=== PATIENT | female | born 1970 | race Caucasian/White ===

== ENCOUNTER 2020-02-14 09:58 | Inpatient (IN) | payer OTHER ==
[~2020-02-14] VITALS: Ht 157.5 cm; Wt 44.0 kg
[~2020-02-14 09:58] MED LIST: ACETAMINOPHEN-1 EAC1 PO; MULTIVITAMINS; PROZAC20 MG PO
[2020-02-14 10:12] VITALS: BP 134/79
[2020-02-14 10:21] LABS: URINE BILIRUBIN NEGATIVE (Negative); URINE BLOOD TRACE (Negative); URINE CLARITY CLEAR; URINE COLOR YELLOW; URINE GLUCOSE-RANDOM NEGATIVE (Negative); URINE KETONES NEGATIVE (Negative); URINE LEUKOCYTES-REFLEX NEGATIVE (Negative); URINE NITRITE-REFLEX NEGATIVE (Negative); URINE PROTEIN NEGATIVE (Negative); URINE SPECIFIC GRAVITY <= 1.005 (1.005-1.030); URINE UROBILINOGEN 0.2 E.U./dl (0.2-1.0)
[2020-02-14 10:41] LABS: ABSOLUTE BASOPHILS 0.1 thou/uL (0.0-0.2); ABSOLUTE LYMPHOCYTES 2.3 thou/uL (0.8-5.3); ABSOLUTE MONOCYTES 1.3 thou/uL (0.0-1.2); ABSOLUTE NEUTROPHILS 11.8 thou/uL (1.6-8.1); BASOPHILS 0.4 %; EOSINOPHILS 0.2 %; HEMATOCRIT 35.2 % (37.0-47.0); HEMOGLOBIN 12.3 gm/dL (12.0-15.0); LYMPHOCYTES 15.1 %; MCH 35.2 pg (26.0-34.0); MCV 100.4 fL (80.0-100.0); MONOCYTES 8.2 %; MPV 7.6 fl. (7.2-11.1); NUCLEATED RBCS 0 /100WBC; PLATELET COUNT* 333 thou/uL (150-400); POLYS 76.1 %; RBC 3.51 mil/uL (4.20-5.00); RDW-CV 12.2 % (10.5-14.5); WBC 15.5 thou/uL (4.0-11.0)
[2020-02-14 10:45] LABS: CALCIUM 9.1 mg/dL (8.5-10.1); CREATININE 0.7 mg/dL (0.6-1.3)
[2020-02-14 10:50] LABS: ALBUMIN 3.4 g/dL (3.4-5.0); TOTAL BILIRUBIN 0.3 mg/dL (<0.1-1.0); TOTAL PROTEIN 7.6 g/dL (6.4-8.2)
[2020-02-14 15:36] VITALS: BP 112/73
[2020-02-14 15:57] VITALS: BP 113/74
[2020-02-14] MEDS ORDERED: RITALIN20 MG PO (18:55)
[2020-02-15 05:12] LABS: ABSOLUTE MONOCYTES 0.4 thou/uL (0.0-1.2); ABSOLUTE NEUTROPHILS 8.3 thou/uL (1.6-8.1); BASOPHILS 0.2 %; HEMATOCRIT 33.9 % (37.0-47.0); HEMOGLOBIN 11.7 gm/dL (12.0-15.0); LYMPHOCYTES 10.8 %; MCH 34.9 pg (26.0-34.0); MCHC 34.5 g/dL (28.0-37.0); MCV 101.2 fL (80.0-100.0); MPV 8.2 fl. (7.2-11.1); NUCLEATED RBCS 0 /100WBC; PLATELET COUNT* 343 thou/uL (150-400); RBC 3.35 mil/uL (4.20-5.00); RDW-CV 12.3 % (10.5-14.5); WBC 9.7 thou/uL (4.0-11.0)
[2020-02-15 05:44] LABS: ALBUMIN 2.8 g/dL (3.4-5.0); CALCIUM 8.5 mg/dL (8.5-10.1); CREATININE 0.9 mg/dL (0.6-1.3); MAGNESIUM 1.9 mg/dL (1.8-2.4); PHOSPHORUS* 3.3 mg/dL (2.5-4.9); TOTAL BILIRUBIN 0.3 mg/dL (<0.1-1.0); TOTAL PROTEIN 6.6 g/dL (6.4-8.2)
[2020-02-15 05:46] LABS: POTASSIUM 4.4 mmol/L (3.5-5.1)
[2020-02-15 07:45] VITALS: BP 93/59
[2020-02-15 14:05] VITALS: BP 93/59
[2020-02-15 14:21] VITALS: BP 93/59
--- NOTE | 2020-02-15 20:52 | OP ---
[address] [address] OPERATIVE REPORT Name: CARMEN SPEARS Room: [address]#: [id number] Admission: 02/14/20 Attend Phys: Helder Montano Discharge: 02/15/20 Date of : 74 Report #: [id number] THIS REPORT FOR: //name// cc: ELVER Perez family physician/PCP ELVER Perez family physician/PCP ~ CC: ELVER physician/PCP Anthony Owusu DICTATED BY: Yoshi Urbina DO DATE OF SERVICE: 02/14/2020 PREOPERATIVE DIAGNOSIS: Perforated appendicitis. POSTOPERATIVE DIAGNOSIS: Abdominal ascites. SURGEON: Anthony Owusu DO ASSISTANTS: Yoshi Urbina, PGY-5 and MS David4. OPERATION PERFORMED: Laparoscopic appendectomy and diagnostic laparoscopy. ANESTHESIA: General and local. ESTIMATED BLOOD LOSS: 5 mL. SPECIMEN: Appendix and fluid for culture. COMPLICATIONS: None. FINDINGS: Noninflamed appendix. Ascites and fluid in the pelvis. No purulence. No obvious site of inflammation or perforation of the anterior abdominal structures. INDICATIONS: The patient is a 49-year-old female that presented to the Emergency Department complaining of 5 days of increasing right lower quadrant pain and fever. The pain was located in the right lower quadrant and radiated to her back. She underwent CT scan, which showed inflammatory changes in the right lower quadrant, poor visualization of the appendix and a small bubble of extraluminal gas near the liver. She also had a leukocytosis of 15.5 with a left shift. Because of these findings, there was suspicion for perforated appendicitis. She was informed of the risks and benefits of operative versus nonoperative management. She was specifically informed of the risks of laparoscopic appendectomy with risks including but not limited to bleeding, [place] [address] OPERATIVE REPORT Name: CARMEN SPEARS Room: [address]#: [id number] Admission: 02/14/20 Attend Phys: Helder Montano Discharge: 02/15/20 Date of : 74 Report #: [id number] infection, bowel injury, bladder injury, and need for reoperation. She understood these risks and decided to proceed with surgery. DESCRIPTION OF PROCEDURE: After informed consent was obtained, the patient was brought to the operating room and placed in supine position. SCDs were on and running. Preoperative antibiotics were given in the OR. General anesthesia was administered with an ET tube. The patient was prepped and draped in the usual sterile fashion. A surgical pause was held to confirm proper patient and procedure. A curvilinear infraumbilical incision horizontal orientation was made using an 11 blade. Dissection was carried through the subcutaneous tissue using cautery. The S retractors were used to bluntly dissect the subcutaneous fat until the fascia was identified, which was scored with cautery and elevated with 2 Kochers. Peritoneum was bluntly entered using a Mahogany clamp. A finger was introduced into the abdomen and intraperitoneal location was confirmed. Stay sutures were placed on either side of the fascia with 0 Vicryl. A Mary trocar 12 mm in size was inserted into the abdomen. Abdomen was insufflated. The patient was positioned head down and left side down. Two additional 5 mm ports were placed, one in the suprapubic region and one in the left lower quadrant under direct visualization. Attention was turned towards the right lower quadrant. This right colon was identified and traced down to the cecum, which was in the pelvis. Laparoscopic Babcocks were used to grab the cecum and bring it into the right lower quadrant. The appendix was readily visualized and was not inflamed and normal appearing. There did not appear to be any inflammation or site of perforation. Due to the negative appendix, an exploration of the abdomen was undertaken. The small bowel was run from the terminal ileum at the cecum back. There was no inflammation to suggest Crohn's disease. There was no Meckel's diverticulum noted. The sigmoid colon was normal appearing. Both ovaries were identified. The patient was status post hysterectomy. The vaginal cuff appeared intact. The remaining tubes on bilateral pelvic lind appeared normal. There was some ascites in the pelvis, which was suctioned and sent for culture. The rectum, sigmoid and left colon appeared normal. The stomach appeared normal. The liver appeared normal. The gallbladder appeared normal. There was no visible sign of any inflammation or perforation with the visualized abdominal structures. Attention was returned towards the right lower quadrant. The appendix was elevated. A [place] dissector was used to create a window in the mesoappendix. A 45 mm Covidien purple load was fired across the base of the appendix. A LigaSure was used to take down the mesoappendix. The staple line was inspected and hemostatic and intact. There was no appendiceal stump. The mesoappendix was inspected and hemostatic. The abdomen was desufflated. Ports were removed under direct visualization. The appendix had been placed within an EndoCatch bag and placed aside until desufflation. The specimen was removed through the umbilical incision. Previous stay sutures were elevated. A single [id number] using 0 Vicryl was used to close the fascia. All skin was closed using 4-0 Monocryl. Wounds were cleansed and dressed with Mastisol, Steri-Strips, 4 x 4's, and [facility] [address] [place] [address] OPERATIVE REPORT Name: CARMEN SPEARS Room: [address]#: [id number] Admission: 02/14/20 Attend Phys: Helder Montano Discharge: 02/15/20 Date of : 74 Report #: [id number] Tegaderms. All counts were correct. The patient was emerged from anesthesia and transferred to the PACU in stable condition. <ELECTRONICALLY SIGNED> By: Anthony Owusu DO 02/15/202051 99Anthony Owusu DO /nt
--- NOTE | 2020-02-17 17:06 | PATH ---
[address] [address] PATHOLOGY RPT PROCEDURE Name: LUPE SPEARS Room: [address] IN M.R.#: [id number] Admission: 02/14/20 Date of : 74 Discharge: 02/15/20 Report #: [id number] Path Case #: [id number] [facility] Accession Number: [id number] . 01 Material submitted: . appendix - APPENDIX . 01 Clinical history: . APPENDICITIS . 02 Diagnosis: Appendix: - Benign and non-inflamed appendix with fibrous obliteration of majority of lumen. (MEGHAN/db; 02/17/2020) LBQ 02/17/2020 1632 Local . 02 Electronically signed: . Yakov Barnhart MD, Pathologist NPI- [id number] . 01 Gross description: . The specimen is received in formalin, labeled "Lupe Spears, appendix" and consists of an appendix measuring 5.3 cm in length and up to 0.5 cm in diameter with mesoappendix measuring 1.5 cm thick. The serosa is pink-lindsay and smooth. The margin is closed with a line of mitchell and inked black. Sectioning reveals a pinpoint lumen. The appendix is entirely submitted in A1-A3. (SDY; 02/16/2020) SYU/SYU 02/16/2020 1123 Local . 02 Pathologist provided ICD-10: K38.8 . 02 CPT . 351607 Specimen Comment: A courtesy copy of this report has been sent to [phone] Specimen Comment: Report sent to Performed at: [address], [place], [place] [id number] MD Tino Valdivia MD Phone: [phone] Performed at: 02 [facility] [address], [place], [place] [id number] MD Yakov Barnhart MD Phone: [phone]
== END 2020-02-15 14:40 | disposition home or self-care (01) | DRG 339 ==
LOC: M.ERS 09:58 → M.TBA-ER 13:08 → M.3W 16:03
PROVIDERS: Physician Assistant; ADMIT Surgery; ATTEND Surgery
PROC: 0DTJ4ZZ Resection of Appendix, Percutaneous Endoscopic Approach (ICD-10-PCS; principal; 2020-02-14)
DX: K35.32 Acute appendicitis with perforation, localized peritonitis, and gangrene, without abscess (principal); R18.8 Other ascites; Z20.828 Contact with and (suspected) exposure to other viral communicable diseases; F17.210 Nicotine dependence, cigarettes, uncomplicated; Z79.899 Other long term (current) drug therapy; Z90.710 Acquired absence of both cervix and uterus